=== PATIENT | male | born 1970 | race Caucasian/White ===

== ENCOUNTER 2019-02-04 15:06 | Inpatient (IN) ==
--- OUTSIDE RECORDS SUMMARY | 2019-02-04 15:09 | External Medical Summary | Continuity of Care Document ---
:1970 Author Name Elisa Ortiz, Provider Address Unavailable Unavailable , Care Team Providers Name Role Phone Arianne [email or web address] KAROLINA SHIN Unavailable Unavailable Problems Active medical history not documented Allergies and Adverse Reactions Penicillins (Allergy) Reaction: Rash Medications Albuterol Sulfate HFA AERS Refills: 0 Advair HFA 115-21 MCG/ACT Inhalation Aerosol Refills: 0 Procedures Procedures not documented Immunizations Td Comments:Approx 2009 Influenza Comments:Approx 2010 Family History Unknown Family Member Family history of No Significant Family Status: Active Comments: Family History History Social History - Smoking Status Never smoker Interventions Discussion/SummaryAfter evaluation of this patient clinically and personal review of his CT scan of his maxillofacial bones this patient has a minimally displaced nasal fracture on the left, with multiple facial abrasions.On visual exam I do not notice any significant nasal deformity although I can palpate a very small step-off on the left. I recommended observation of this as a doubt that I could to further improve this via closed reduction. If he has cosmetic concerns down the road he would then need to think about rhinoplasty type procedure. I doubt this will be necessary. I also counseled him on local wound care, applying bacitracin ointment 3-4 times a day, sun protection and cimeosil scar gel. I recommended p.r.n. followup. All of his questions were answered. Plan of Treatment Planned Observations Planned Goals not documented Results No Known Results Results not documented Encounters Appointment; Arianne Fitzgerald M.D. 11-Apr-2012 15:00 Encounter Diagnosis: Problem not documented
[2019-02-04] MEDS ORDERED: HYDROmorphone INJ 1 MG/ML SYRINGE IV STA (16:18)
[2019-02-04] MEDS ORDERED: ONDANSETRON INJ 2 MG/ML 2 ML VIAL IV STA (16:18)
[2019-02-04] MEDS ORDERED: SODIUM CHLORIDE 0.9% 1000ML 2,000 ML IV ONE (16:18)
--- NOTE | 2019-02-04 16:30 | Emergency Department Note ---
History of Present Illness General Chief complaint: Abdominal Pain Stated complaint: ABDOMINAL PAIN Time Seen by Provider: 02/04/19 15:58 History of Present Illness Maximum Pain Intensity: 8 This patient is a 48-year-old male presents to the emergency department via private vehicle for evaluation of a sudden onset of right upper quadrant abdominal pain that started this morning. He describes it as a sharp, stabbing sensation that is worse with movement. He has not taken anything for pain. He also had an episode of vomiting this morning. The patient had a colonoscopy done 3 days ago. He tested positive for C. difficile. He was started on vancomycin, which she has been taking for the last 3 days. He denies any fevers. Patient continues to have diarrhea. He denies any chest pain or shortness of breath. The patient was seen at [facility], and sent here for further evaluation. Home Medications Home Medications Medication Instructions Recorded Confirmed Type albuterol sulfate 2 puff INHALATION UD PRN 02/04/19 02/04/19 History cetirizine [Zyrtec] 10 mg PO DAILY PRN 02/04/19 02/04/19 History fluticasone propion-salmeterol 1 puff INHALATION Q12H 02/04/19 02/04/19 History [Advair Diskus] vancomycin 250 mg PO QID 02/04/19 02/04/19 History Allergies Allergy/AdvReac Type Severity Reaction Status Date / Time Penicillins Allergy Mild UNK Unverified 02/04/19 17:31 azithromycin AdvReac Severe cdiff Verified 02/04/19 21:52 clindamycin AdvReac Severe cdiff Verified 02/04/19 21:52 Past Med/Surg History Medical History Allergic rhinitis (Chronic) C. difficile colitis (Acute) Asthma (Chronic) Surgical History History of esophagogastroduodenoscopy (EGD) (Chronic) non erosive gastropathy History of colonoscopy (Chronic) 02/01 + cdiff aspirate Family History Grandmother Colostomy present unknown cause Grandfather Coronary heart disease Sister Nephrolithiasis Social History Preferred Language: Urdu Communication Ability: Effective marital status: Single Current Living Situation: Alone Feels Safe at Home: Yes Smoking Status: Never smoker Hx Alcohol Use: Yes Alcohol type: beer Alcohol Intake Frequency: Rarely Alcohol Intake Frequency Comment: a couple times a month Hx Substance Use: No Review of Systems A total of 10 systems reviewed and were otherwise negative Physical Exam Vital Signs Vital Signs - 24 hr 02/04/19 15:33 02/04/19 19:10 02/04/19 20:52 Temperature 36.3 C L Temperature Source Oral Sepsis Recent Fever Within 48 Hours No Sepsis Action Taken by Nursing No Action Required Pulse Rate 91 H Pulse Rate [Right Apical] 100 H 100 H Respiratory Rate 18 16 18 Respiratory Effort / Characteristics Non-Labored Non-Labored Spontaneous Respiratory Depth Normal Normal Respiratory Pattern Regular Blood Pressure 114/73 Blood Pressure [Right Arm] 145/87 H 122/72 Blood Pressure Mean 86 Blood Pressure Mean [Right Arm] 106 88 Blood Pressure Position [Right Arm] Sitting Pulse Oximetry 99 99 96 Oxygen Delivery Method Room Air Room Air Room Air 02/04/19 22:11 Temperature Temperature Source Sepsis Recent Fever Within 48 Hours Sepsis Action Taken by Nursing Pulse Rate Pulse Rate [Right Apical] 95 H Respiratory Rate 18 Respiratory Effort / Characteristics Non-Labored Spontaneous Respiratory Depth Normal Respiratory Pattern Regular Blood Pressure Blood Pressure [Right Arm] 137/78 Blood Pressure Mean Blood Pressure Mean [Right Arm] 97 Blood Pressure Position [Right Arm] Pulse Oximetry 97 Oxygen Delivery Method Room Air Constitutional WD/WN, vitals as above + acute distress (Uncomfortable in appearance peer) Eyes EOM intact bilaterally ENMT external ear and nose normal, oropharynx normal (Oral mucosa dry) Neck trachea midline Respiratory normal respiratory effort, lungs clear to auscultation Cardiovascular RRR, no murmur, no edema Gastrointestinal (Abdomen) Bowel sounds present, but hypoactive. No rigidity noted. Abdomen soft. Tenderness to palpation in the right upper quadrant. No guarding or rebound tenderness. Musculoskeletal no cyanosis or clubbing, extremities motor strength 5/5 Skin no rashes, warm and dry Neurologic Alert and oriented x3. No focal motor deficits. Psychiatric Acting appropriately Course Patient was seen and examined Vital signs including blood pressure were reviewed medications list was verified with patient Labs were obtained, and a saline lock was established The patient was ordered Dilaudid 1 mg IV, Zofran 4 mg IV and 2 L normal saline The patient was also ordered Toradol 30 mg IV Imaging was performed and reviewed Upon reevaluation, the patient was feeling better. We discussed his work-up. He voiced understanding. He was in agreement with the disposition. The case was also discussed with my supervising physician who is in agreement with my plan. The [facility] Hospitalist was consulted. They kindly agreed to evaluate the patient for likely inpatient management. Consultations Consultation #1: [facility]ist Administered Medications Ioversol (Optiray 320 100ml) 94 ml IV ONCE PRN PRN Reason: Interaction Checking Stop: 02/08/19 19:09 Last Admin: 02/04/19 19:10 Dose: 94 ml Documented by: [id number] Discontinued Medications Hydromorphone HCl (Dilaudid) 1 mg IV NOW STA Stop: 02/04/19 16:19 Last Admin: 02/04/19 17:26 Dose: 1 mg Documented by: [id number] Sodium Chloride (Nss 1000ml) 2,000 mls @ 999 mls/hr IV .Q2H1M ONE Stop: 02/04/19 18:18 Last Infusion: 02/04/19 19:29 Dose: 0 mls/hr Documented by: [id number] Admin: 02/04/19 17:26 Dose: 999 mls/hr Documented by: [id number] Ketorolac Tromethamine (Toradol) 30 mg IV NOW STA Stop: 02/04/19 20:18 Last Admin: 02/04/19 21:10 Dose: Not Given Documented by: [id number] Ondansetron HCl (Zofran) 4 mg IV NOW STA Stop: 02/04/19 16:19 Last Admin: 02/04/19 17:26 Dose: 4 mg Documented by: [id number] Tamsulosin HCl (Flomax) 0.4 mg PO NOW ONE Stop: 02/04/19 20:18 Last Admin: 02/04/19 21:03 Dose: 0.4 mg Documented by: [id number] Medical Decision Making Medical Records Attestation: I reviewed the patient's medical records. Home Medications Current Medication List: was personally reviewed by me Laboratory Data Attestation: I reviewed the patient's lab results. Result diagrams: 02/04/19 16:58 02/04/19 16:58 Lab Results 02/04/19 02/04/19 02/04/19 Range/Units 16:58 16:58 16:58 WBC 13.26 H (4.8-10.8) K/uL RBC 4.88 (4.7-6.1) M/uL Hgb 14.8 (14.0-18.0) g/dL Hct 41.7 L (42-52) % MCV 85.5 (80-100) fL MCH 30.3 (25-34) pg MCHC 35.5 (32-36) g/dL RDW Std Deviation 39.3 (36.4-46.3) fL RDW Coeff of Arlet 12.7 (11.5-14.5) % Plt Count 265 (130-400) K/uL MPV 10.2 (7.4-10.4) fL Immature Gran % (Auto) 0.2 % Neut % (Auto) 91.5 % Lymph % (Auto) 4.8 % [place] % (Auto) 3.2 % Eos % (Auto) 0.2 % Baso % (Auto) 0.1 % Immature Gran # (Auto) 0.02 (0.00-0.02) K/uL Neut # (Auto) 12.16 H (1.4-6.5) K/uL Lymph # (Auto) 0.63 L (1.2-3.4) K/uL [place] # (Auto) 0.42 (0.11-0.59) K/uL Eos # (Auto) 0.02 (0-0.5) K/uL Baso # (Auto) 0.01 (0-0.2) K/uL PT 11.7 (9.0-12.0) Seconds INR 1.2 H (0.9-1.1) Sodium 138 (136-145) mmol/L Potassium 3.3 L (3.5-5.1) mmol/L Chloride 104 (98-107) mmol/L Carbon Dioxide 26 (21-32) mmol/L Anion Gap 8.0 (3-11) BUN 17 (7-18) mg/dl Creatinine 1.26 (0.6-1.4) mg/dl Est Cr Clr Drug Dosing 87.1 ml/min Est GFR ( Amer) 77.1 Est GFR (Non-Af Amer) 66.5 BUN/Creatinine Ratio 13.2 (10-20) Glucose 158 H (70-99) mg/dl Lactate (0.4-2.0) mmol/L Calcium 9.0 (8.5-10.1) mg/dl Total Bilirubin 1.6 H (0.2-1) mg/dl AST 10 L (15-37) U/L ALT 18 (12-78) U/L Alkaline Phosphatase 77 (45-117) U/L Troponin I < 0.015 (0-0.045) ng/ml Total Protein 7.3 (6.4-8.2) gm/dl Albumin 4.0 (3.4-5.0) gm/dl Globulin 3.3 (2.5-4.0) gm/dl Albumin/Globulin Ratio 1.2 (0.9-2) 02/04/19 Range/Units 16:58 WBC (4.8-10.8) K/uL RBC (4.7-6.1) M/uL Hgb (14.0-18.0) g/dL Hct (42-52) % MCV (80-100) fL MCH (25-34) pg MCHC (32-36) g/dL RDW Std Deviation (36.4-46.3) fL RDW Coeff of Arlet (11.5-14.5) % Plt Count (130-400) K/uL MPV (7.4-10.4) fL Immature Gran % (Auto) % Neut % (Auto) % Lymph % (Auto) % [place] % (Auto) % Eos % (Auto) % Baso % (Auto) % Immature Gran # (Auto) (0.00-0.02) K/uL Neut # (Auto) (1.4-6.5) K/uL Lymph # (Auto) (1.2-3.4) K/uL [place] # (Auto) (0.11-0.59) K/uL Eos # (Auto) (0-0.5) K/uL Baso # (Auto) (0-0.2) K/uL PT (9.0-12.0) Seconds INR (0.9-1.1) Sodium (136-145) mmol/L Potassium (3.5-5.1) mmol/L Chloride (98-107) mmol/L Carbon Dioxide (21-32) mmol/L Anion Gap (3-11) BUN (7-18) mg/dl Creatinine (0.6-1.4) mg/dl Est Cr Clr Drug Dosing ml/min Est GFR ( Amer) Est GFR (Non-Af Amer) BUN/Creatinine Ratio (10-20) Glucose (70-99) mg/dl Lactate 1.7 (0.4-2.0) mmol/L Calcium (8.5-10.1) mg/dl Total Bilirubin (0.2-1) mg/dl AST (15-37) U/L ALT (12-78) U/L Alkaline Phosphatase (45-117) U/L Troponin I (0-0.045) ng/ml Total Protein (6.4-8.2) gm/dl Albumin (3.4-5.0) gm/dl Globulin (2.5-4.0) gm/dl Albumin/Globulin Ratio (0.9-2) Imaging Data Attestation: I personally reviewed and interpreted this imaging study as follows: ECG Data Attestation: I personally reviewed and interpreted this ECG as follows: Indication: abdominal pain Rate (beats per minute): 63 Rhythm: normal sinus Blood Pressure Blood Pressure Findings: Normal blood pressure MDM Narrative Differential diagnosis: Bowel perforation, colitis, choledocholithiasis, cholecystitis, gastroenteritis, pancreatitis, cardiac ischemia, among others In this patient is a 48-year-old male who presents to the emergency department with complaints of right upper abdominal pain that was fairly sudden in onset. Given his history of recent colonoscopy and C. difficile, I was concerned for bowel perforation. His labs reveal mild leukocytosis. His T bilirubin is elevated. Other labs are fairly unremarkable. CT is consistent with a large, proximal ureteral stone. His urine does not appear to be infected. He does not appear septic. He is afebrile. Given the size of the stone and location, I do not think the patient would do well with outpatient management. He was in agreement. The [facility] hospitalist kindly agreed to evaluate the patient for possible inpatient management. Impression & Plan Right ureteral calculus Discharge Plan Visit Data Chief Complaint: Abdominal Pain Stated Complaint: ABDOMINAL PAIN ED Provider: Leo Quintanilla ED Midlevel Provider: Ani Saavedra Discharge Problem: Right ureteral calculus Patient Disposition: Admitted As Inpatient Discharge Instructions Interventions: ED Discharge Assessment Last Done: 02/04/19 22:22 Forms Stand Alone Forms: Call Back Authorization, [facility], Important Visit Information Prescriptions Prescriptions: No Action albuterol sulfate 90 mcg/actuation HFA aerosol inhaler 2 puff inhalation UD PRN (Reason: Shortness Of Breath) RF: 0 cetirizine [Zyrtec] 10 mg Tablet 10 mg PO DAILY PRN (Reason: allergies) RF: 0 vancomycin 250 mg Capsule 250 mg PO QID RF: 0 fluticasone propion-salmeterol [Advair Diskus] 100-50 mcg/dose Blister With Device 1 puff INHALATION Q12H RF: 0 Referrals Referrals: Moe Briggs MD [Primary Care Provider] -
[2019-02-04 17:17] LABS: Basophils # (auto) 0.01 K/uL (0-0.2); Basophils % (auto) 0.1 %; Eosinophils # (auto) 0.02 K/uL (0-0.5); Eosinophils % (auto) 0.2 %; Hematocrit (blood only) 41.7 % (42-52); Hemoglobin 14.8 g/dL (14.0-18.0); Immature Granulocytes # (auto) 0.02 K/uL (0.00-0.02); Immature Granulocytes % (auto) 0.2 %; Lymphocytes # (auto) 0.63 K/uL (1.2-3.4); Lymphocytes % (auto) 4.8 %; Mean Corpuscular Hgb Conc 35.5 g/dL (32-36); Mean Corpuscular Volume 85.5 fL (80-100); Mean Platelet Volume 10.2 fL (7.4-10.4); Monocytes # (auto) 0.42 K/uL (0.11-0.59); Monocytes % (auto) 3.2 %; Neutrophils # (auto) 12.16 K/uL (1.4-6.5); Neutrophils % (auto) 91.5 %; Platelet Count 265 K/uL (130-400); RDW Coefficient of Variation 12.7 % (11.5-14.5); RDW Standard Deviation 39.3 fL (36.4-46.3); Red Blood Count 4.88 M/uL (4.7-6.1); White Blood Count 13.26 K/uL (4.8-10.8)
[2019-02-04 17:32] LABS: Alanine Aminotransferase 18 U/L (12-78); Aspartate Aminotransferase 10 U/L (15-37); BUN Creatinine Ratio 13.2 (10-20); Blood Urea Nitrogen 17 mg/dl (7-18); Carbon Dioxide 26 mmol/L (21-32); Chloride 104 mmol/L (98-107); Creatinine Clr Calc Pharmacy 87.1 ml/min; Est GFR (African American) 77.1; Est GFR (Non-African American) 66.5; Glucose 158 mg/dl (70-99); Potassium 3.3 mmol/L (3.5-5.1); Sodium 138 mmol/L (136-145)
[2019-02-04 17:37] LABS: Albumin Globulin Ratio 1.2 (0.9-2); Alkaline Phosphatase 77 U/L (45-117); Bilirubin,Total 1.6 mg/dl (0.2-1); Globulin 3.3 gm/dl (2.5-4.0); Total Protein 7.3 gm/dl (6.4-8.2); Troponin I < 0.015 ng/ml (0-0.045)
[2019-02-04 17:44] LABS: INR 1.2 (0.9-1.1); Prothrombin Time 11.7 Seconds (9.0-12.0)
[2019-02-04] MEDS ORDERED: IOVERSOL 100ml IV PRN (19:10)
--- NOTE | 2019-02-04 19:52 | CT Scan Report ---
CT OF THE ABDOMEN AND PELVIS WITH CONTRAST CLINICAL HISTORY: Right upper quadrant pain. History of C. difficile. Recent scope. COMPARISON STUDY: None. TECHNIQUE: Following IV administration of 94 mL of Optiray-320, axial images of the abdomen and pelvi s were obtained from the lung bases to the proximal femurs. Images were reviewed in the axial, sagitt al, and coronal planes. IV contrast was administered without complication. Automated exposure contro l was utilized for the study. A dose lowering technique was utilized adhering to the principles of A MAX. Oral contrast was administered. CT DOSE: 724.14 mGy.cm FINDINGS: Lung bases are unremarkable. The liver, spleen, adrenal glands and pancreas are unremarkabl e. Small bilateral renal calculi measure up to 3 mm. Note is made of a 1 cm x 0.6 cm proximal right u reteral calculus. There is mild right hydronephrosis. There is minimal perinephric and periureteral i nfiltration. No additional ureteral calculi are identified. No pneumatosis, free air or portal venous gas is present. The appendix is normal. Mild left colon wall thickening is likely due to underdisten tion. There is no abscess. No suspicious osseous lesions are noted. There are are bilateral L5 pars d efect with minimal antral listhesis of L5 on S1. IMPRESSION: 1. 1 cm x 0.6 cm proximal right ureteral calculus which results in mild right hydronephrosis. 2. Small bilateral intrarenal calculi. 3. Apparent mild left colon wall thickening. This is likely due to underdistention although a nonspec ific colitis could appear similar. No free air. Electronically signed by: Ralph Alvarado M.D. 02/04/2019 7:50 PM
[2019-02-04] MEDS ORDERED: KETOROLAC 30 MG/ML VIAL IV STA (20:17)
[2019-02-04] MEDS ORDERED: TAMSULOSIN HCL 0.4 MG CAP PO ONE (20:17)
--- NOTE | 2019-02-04 21:32 | History & Physical Report ---
Date of Service February 04, 2019 Assessment & Plan (1) Right ureteral calculus: (2) Renal colic on right side: This is a 48-year-old male who has a significant past medical history of moderate persistent asthma, chronic allergic rhinitis, newly diagnosed C. difficile 02/01, history of Cdiff in 2017 who presents to [facility] ED secondary to right-sided back pain that started approximately 12 PM. In ED patient remained hemodynamically stable. Patient does not meet criteria for SIRS/sepsis His WBC count is elevated at 13 K, likely in setting of C. difficile and his heart rate was greater than 90 likely secondary to pain nontoxic appearing, lactate WNL CT scan abdomen pelvis: 1 cm x 0.6 cm proximal right ureteral calculus which results in mild right hydronephrosis. 2. Small bilateral intrarenal calculi. 3. Mild left colon wall thickening admit to med/surg clear liquids tonight, NPO after midnight IVF NS 125 cc/hr consult urology: spoke with Flomax 0.4mg po qam strain all urine UA pending cbc, cmp in a.m. Ketorolac 30 mg every 6 hours IV as needed for moderate pain/morphine 4 mg IV every 4 hours as needed severe pain APAP as needed (3) Hypokalemia: likely secondary to diarrhea replete with 20meq KCL follow bmp (4) C. difficile colitis: hx of cdiff in 2010 s/p azithromycin use Pt treated with clindamycin starting December 29 Dx with Cdiff via colonoscopy 02/01 Started on PO 02/02 to complete 14 day course through 02/16 cdiff precautions avoid antibiotics when able (5) Asthma: controlled with advair, prn albuterol no acute exac (6) DVT prophylaxis: SCDS/TEDS Disposition: discharge to home when able Follow up: PCP Dr. Briggs upon discharge along with approp GI follow up given Cdiff dx Patient was seen and examined in collaboration with Dr. Manrique, please see addendum Starting 02/05/19 patient will be under the care of Dr. Noonan History of Present Illness Chief Complaint: R sided low back pain that started approx 12pm. Primary Care Provider: Moe Briggs MD This is a 48-year-old male who has a significant past medical history of moderate persistent asthma, chronic allergic rhinitis, newly diagnosed C. difficile 02/01, history of Cdiff in 2017 who presents to [facility] ED secondary to right-sided back pain that started approximately 12 PM. Patient states he went home after eating lunch, cauliflower risotto and 2 chicken fingers when approximately 40-45 minutes after he developed intense sharp stabbing pain in his right mid to lower back that radiated to his right lower quadrant. He was unable to get comfortable, nothing alleviated the pain or made pain worse. He did not try anything [id number]. Had associated nausea and emesis x2. He opted to present to [facility] urgent care who referred patient to ED for further work-up. He denies ever having similar symptoms in past. He admits to feeling chilled but denies any fever or sweats. Denies any lightheadedness, dizziness, syncope, chest pain, shortness of breath, palpitations, dysuria, hematuria, increased urgency or frequency with urination. Denies personal history of kidney stones but states his sister had a kidney stone approximately 1 year ago. Of significance on 02/01/2019 patient underwent EGD and colonoscopy and was diagnosed with C. difficile. He was started on oral vancomycin. On December 29 patient was diagnosed with conjunctivitis as well as sinusitis. He was placed on Ciprodex eyedrops as well as oral clindamycin. On January 18 he noticed increased abdominal cramping with associated diarrhea. Abdominal cramping continue become more frequent and worse along with increased frequency of diarrhea. He saw GI on 01/23 who recommended EGD and colonoscopy. At that time he had stool studies for O/P and C. difficile which was negative. He also had a right upper quadrant ultrasound which revealed a gallbladder polyp but otherwise no further gallbladder pathology. Allergies Allergy/AdvReac Type Severity Reaction Status Date / Time Penicillins Allergy Mild UNK Unverified 02/04/19 17:31 azithromycin AdvReac Severe cdiff Verified 02/04/19 21:52 clindamycin AdvReac Severe cdiff Verified 02/04/19 21:52 Home Medications Home Medications Medication Instructions Recorded Confirmed Type albuterol sulfate 2 puff INHALATION UD PRN 02/04/19 02/04/19 History cetirizine [Zyrtec] 10 mg PO DAILY PRN 02/04/19 02/04/19 History fluticasone propion-salmeterol 1 puff INHALATION Q12H 02/04/19 02/04/19 History [Advair Diskus] vancomycin 250 mg PO QID 02/04/19 02/04/19 History Past Med/Surg History Medical History Allergic rhinitis (Chronic) C. difficile colitis (Acute) Asthma (Chronic) Surgical History History of esophagogastroduodenoscopy (EGD) (Chronic) non erosive gastropathy History of colonoscopy (Chronic) 02/01 + cdiff aspirate Family History Grandmother Colostomy present unknown cause Grandfather Coronary heart disease Sister Nephrolithiasis Social History Preferred Language: Korean Communication Ability: Effective Unleavened Dough Mixer Required: No Beliefs That Will Affect Care: None marital status: Single Current Living Situation: Alone Other Information That Helps Us Care for You: No Feels Safe at Home: Yes Safety Concerns: Feels Safe At This Time Smoking Status: Never smoker Hx Alcohol Use: Yes Alcohol type: beer Alcohol Intake Frequency: Rarely Alcohol Intake Frequency Comment: a couple times a month Hx Substance Use: No Review of Systems Review of Systems: As noted per HPI, 10 systems reviewed and negative unless noted above. Physical Exam Physical Exam: Gen: WD/WN, M, NAD, sitting up in bed, pleasant, conversing easily Head: Normocephalic, Atraumatic Eyes: Sclera normal, no conjunctival injection, PERRLA, EOMI ENT: Gross hearing intact, normal pharynx, mucous membranes moist Neck: supple, no adenopathy, No JVD, no bruit, Resp: Clear to auscultation b/l, no wheeze, rales, rhonchi. Normal insp/exp effort, no accessory muscle use CV: Regular rate, regular rhythm, no murmur, rub, gallop, or ectopy Abd: +BS x 4, soft, nontender, nondistended Musculoskeletal: moves extremities active rom x 4, strength intact, good vice president sales strength Extremities: No edema bilaterally Skin: warm, moist, no rash, negative turgor, cap refill < 2sec Neuro: Alert and oriented x 3, speech normal, good mood/affect, cran nerve 2-12 intact grossly : deferred Results & Data Vital Signs (Past 12 Hours) Vital Signs Temp Pulse Pulse Resp BP BP Pulse Ox 02/04/19 20:52 100 H 18 122/72 96 02/04/19 19:10 100 H 16 145/87 H 99 02/04/19 15:33 36.3 C L 91 H 18 114/73 99 Laboratory Results Short CBC 02/04/19 02/04/19 Range/Units 16:58 16:58 WBC 13.26 H (4.8-10.8) K/uL Hgb 14.8 (14.0-18.0) g/dL Hct 41.7 L (42-52) % Plt Count 265 (130-400) K/uL Total Bilirubin 1.6 H (0.2-1) mg/dl BMP 02/04/19 16:58 Sodium 138 Potassium 3.3 L Chloride 104 Carbon Dioxide 26 BUN 17 Creatinine 1.26 Glucose 158 H Calcium 9.0 Cardiac Enzymes 02/04/19 Range/Units 16:58 Troponin I < 0.015 (0-0.045) ng/ml Liver Function 02/04/19 Range/Units 16:58 Total Bilirubin 1.6 H (0.2-1) mg/dl AST 10 L (15-37) U/L ALT 18 (12-78) U/L Alkaline Phosphatase 77 (45-117) U/L Albumin 4.0 (3.4-5.0) gm/dl Diagnostic Findings CT ABD/PELVIS: IMPRESSION: 1. 1 cm x 0.6 cm proximal right ureteral calculus which results in mild right hydronephrosis. 2. Small bilateral intrarenal calculi. 3. Apparent mild left colon wall thickening. This is likely due to underd istention although a nonspecific colitis could appear similar. No free air. Medications Administered Ioversol (Optiray 320 100ml) 94 ml IV ONCE PRN PRN Reason: Interaction Checking Stop: 02/08/19 19:09 Last Admin: 02/04/19 19:10 Dose: 94 ml Documented by: [id number] Discontinued Medications Hydromorphone HCl (Dilaudid) 1 mg IV NOW STA Stop: 02/04/19 16:19 Last Admin: 02/04/19 17:26 Dose: 1 mg Documented by: [id number] Sodium Chloride (Nss 1000ml) 2,000 mls @ 999 mls/hr IV .Q2H1M ONE Stop: 02/04/19 18:18 Last Infusion: 02/04/19 19:29 Dose: 0 mls/hr Documented by: [id number] Admin: 02/04/19 17:26 Dose: 999 mls/hr Documented by: [id number] Ketorolac Tromethamine (Toradol) 30 mg IV NOW STA Stop: 02/04/19 20:18 Last Admin: 02/04/19 21:10 Dose: Not Given Documented by: [id number] Ondansetron HCl (Zofran) 4 mg IV NOW STA Stop: 02/04/19 16:19 Last Admin: 02/04/19 17:26 Dose: 4 mg Documented by: [id number] Tamsulosin HCl (Flomax) 0.4 mg PO NOW ONE Stop: 02/04/19 20:18 Last Admin: 02/04/19 21:03 Dose: 0.4 mg Documented by: [id number] ECG Rate (beats per minute): 63 Rhythm: normal sinus Additional Comments: QTC 462 Code Status & VTE Plan Code Status Full Code VTE Prophylaxis Plan VTE Prophylaxis will be ordered: Yes Supervising Physician Co-Signing Physician Notes HISTORY: Record reviewed. Patient interviewed and examined. Care coordinated with Apple Colon PA-C. Please refer to her documentation for patient's history. Briefly, 48 YO male who presented to ED with right flank pain. No fever, dysuria, hematuria. EXAM: General- no distress Lungs- clear to auscultation; no respiratory distress Cardiovascular- RRR; no murmur; no gallop; no JVD; no pretibial edema Abdomen- + bowel sounds, soft, nontender Back- no CVAT (after receiving analgesics) Extremities- no cyanosis; no calf tenderness Neuro- alert, oriented Skin- warm & dry DATA: WBC 13,260. K 3.3. BUN 17, creat 1.26. Random glucose 158. Other lab studies as noted. CT abdomen and pelvis demonstrated 10 x 6 mm proximal right ureteral calculus with mild hydronephrosis as well as bilateral renal calculi. EKG performed at 1648 reviewed and demonstrated NSR at 60 / minute, inverted T- waves I, flattened T-waves II, aVL, aVF. ASSESSMENT AND PLAN: Right ureteral calculus with hydronephrosis. Afebrile. UA pending. IV fluids, analgesics. Consult Urology. C diff colitis. Continue vancomycin. Hyperglycemia. Check FBS. Please refer to MJ Colon's documentation for discussion of other issues.
[2019-02-04] MEDS ORDERED: RASPBERRY SYRUP 5 ML UDP PO ONE (22:15)
[2019-02-04] MEDS ORDERED: VANCOMYCIN HCL 250 MG/5 ML SOLN PO ONE (22:15)
[2019-02-04] MEDS ORDERED: POTASSIUM CHLORIDE 10 MEQ TABCR PO STA (23:37)
[2019-02-04] MEDS ORDERED: ALUMINUM/MAGNESIUM SUSP 30 ML UDC PO PRN (23:37)
[2019-02-04] MEDS ORDERED: ALBUTEROL HFA 8 GM INHALER INH PRN (23:37)
[2019-02-04] MEDS ORDERED: ONDANSETRON INJ 2 MG/ML 2 ML VIAL IV PRN (23:37)
[2019-02-04] MEDS ORDERED: ACETAMINOPHEN 325 MG TAB PO PRN (23:37)
[2019-02-04] MEDS ORDERED: MoRPHine SULFATE 4 MG/ML 1 ML CARP\\VIAL IV PRN (23:37)
[2019-02-04] MEDS ORDERED: KETOROLAC 30 MG/ML VIAL IV PRN (23:37)
[2019-02-05] MEDS: SODIUM CHLORIDE 0.9% 1000ML 1,000 ML IV SCH ×2 (00:37→09:40)
[2019-02-05 06:45] LABS: Appearance Urine Clear (Clear); Bacteria Urine Automated Negative (Negative); Bilirubin Urine Negative (Negative); Blood Urine 1+ (Negative); Cast Urine Automated 0 /lpf (0-5); Color Urine Yellow; Epithelial Cell Urine Auto 0-5 /lpf (0-5); Glucose Urine UA Negative (Negative); Ketones Urine 2+ (Negative); Leukocyte Esterase Urine Negative (Negative); Nitrite Urine Negative (Negative); Protein Urine Negative (Negative); RBC Urine Automated 0-4 /hpf (0-4); Specific Gravity Urine 1.022 (1.000-1.030); Urobilinogen Urine Negative (Negative); pH Urine 5.5 (4.5-7.5)
[2019-02-05 07:59] LABS: Basophils # (auto) 0.02 K/uL (0-0.2); Basophils % (auto) 0.2 %; Hematocrit (blood only) 39.2 % (42-52); Hemoglobin 13.4 g/dL (14.0-18.0); Immature Granulocytes # (auto) 0.01 K/uL (0.00-0.02); Immature Granulocytes % (auto) 0.1 %; Lymphocytes # (auto) 0.95 K/uL (1.2-3.4); Lymphocytes % (auto) 9.9 %; Mean Corpuscular Hgb Conc 34.2 g/dL (32-36); Mean Corpuscular Volume 86.5 fL (80-100); Mean Platelet Volume 10.1 fL (7.4-10.4); Monocytes # (auto) 0.83 K/uL (0.11-0.59); Monocytes % (auto) 8.6 %; Neutrophils # (auto) 7.73 K/uL (1.4-6.5); Neutrophils % (auto) 80.2 %; Platelet Count 219 K/uL (130-400); RDW Coefficient of Variation 12.9 % (11.5-14.5); RDW Standard Deviation 41.2 fL (36.4-46.3); Red Blood Count 4.53 M/uL (4.7-6.1); White Blood Count 9.64 K/uL (4.8-10.8)
[2019-02-05 08:41] LABS: Albumin Globulin Ratio 1.2 (0.9-2); Albumin Level 3.3 gm/dl (3.4-5.0); Bilirubin,Total 1.3 mg/dl (0.2-1); Calcium 8.6 mg/dl (8.5-10.1); Creatinine Clr Calc Pharmacy 133.8 ml/min; Est GFR (African American) 120.3; Est GFR (Non-African American) 103.8; Globulin 2.8 gm/dl (2.5-4.0); Potassium 3.8 mmol/L (3.5-5.1); Total Protein 6.1 gm/dl (6.4-8.2)
--- NOTE | 2019-02-05 08:46 | XRay Report ---
XR KUB/Abdomen 1 view CLINICAL HISTORY: Ureteral stone COMPARISON STUDY: CT scan dated 02/04/2019 FINDINGS: There is contrast residue within nondilated colon secondary to a prior CT scan. This partia lly obscures the renal shadows. The right renal calculus described on the prior CT scan is not visual ized. There is equivocal visualization of the previously identified proximal right ureteral calculus at the L4 level. IMPRESSION: 1. Technically limited study secondary to contrast within nondilated colon 2. Equivocal 5 mm proximal right ureteral calculus at the L4 level Electronically signed by: Sharif Lopez M.D. 02/05/2019 8:45 AM
[2019-02-05] MEDS ORDERED: FLUTICASONE/SALMETEROL 100/50 (ADVAIR) 14 PUFF/1 INHALER INH SCH (09:00)
[2019-02-05] MEDS ORDERED: VANCOMYCIN 250 MG PO SCH (09:00)
[2019-02-05] MEDS ORDERED: TAMSULOSIN HCL 0.4 MG CAP PO SCH (09:00)
[2019-02-05] MEDS: RASPBERRY SYRUP 5 ML UDP PO SCH ×2 (09:40→13:06)
[2019-02-05] MEDS: VANCOMYCIN HCL 250 MG/5 ML SOLN PO SCH ×2 (09:41→13:06)
--- NOTE | 2019-02-05 09:53 | Urology Consultation ---
Date of Consultation February 05, 2019 Assessment & Plan (1) Right ureteral calculus: A/P 48-year-old male with a right ureteral calculus and improved colic. Findings reviewed with patient. He reports he is perfectly comfortable currently but anxious over the return of possible colic. A significant portion of his presentation was anxiety due to the unknown etiology of his discomfort. He did not take any pain medication at home prior to presentation to the ER. Seen the size of his stone I suspect the spontaneous passage is relatively unlikely. He is offered acute intervention today with possible ureteroscopy should his ureter allow for access to the stone and ureteral stent placement or we can attempt to arrange for outpatient shockwave lithotripsy of his stone later this week. After discussion of risks and benefits of various forms of intervention he would prefer outpatient lithotripsy should his pain remain controllable in the outpatient context. Will provide a p.o. diet for today and the patient may be discharged home this evening if his pain remains controlled. Will discharge home with narcotic pain medication and our service will arrange for outpatient lithotripsy this Monday. Should the patient have uncontrollable pain requiring presentation to the emergency room again and I suspect acute endoscopic decompression will be necessary. Worrisome signs and symptoms reviewed. Patient vocalizes good understanding of the treatment plan. Appointment set to arrange shockwave lithotripsy with MARCIANO at our office at [address] [place] [address] ([phone]) at 10:20 AM tomorrow Monday. Thank you for allowing us to participate in this patient's acute care. Please contact our service with any questions or concerns. History of Present Illness Reason for Consultation: Right ureteral stone with colic. Attending Physician: Yemi Noonan MD History of Present Illness 48-year-old male admitted to the hospital for his first episode of renal colic with a 1 cm at x0.6 cm stone in the right mid ureter. He denies prior stone episodes or previous urologic evaluation. He noticed pain unexpectedly yesterday and was unsure the etiology. He presented to the emergency room where CT scan imaging demonstrated a proximal right ureteral calculus. He reports t hat he was provided with parenteral pain medication in the emergency room and has not had any significant pain since 6 PM last night. He is n.p.o. for possible intervention today. Urology consultation is requested to assist with his inpatient care. Imaging studies are reviewed with the patient as well as his KUB demonstrating a radiopaque mid ureteral stone on the right-hand side. Allergies Allergy/AdvReac Type Severity Reaction Status Date / Time Penicillins Allergy Mild Redness of Unverified 02/05/19 07:48 Skin azithromycin AdvReac Severe cdiff Verified 02/04/19 21:52 clindamycin AdvReac Severe cdiff Verified 02/04/19 21:52 Home Medications Home Medications Medication Instructions Recorded Confirmed Type albuterol sulfate 2 puff INHALATION UD PRN 02/04/19 02/04/19 History cetirizine [Zyrtec] 10 mg PO DAILY PRN 02/04/19 02/04/19 History fluticasone propion-salmeterol 1 puff INHALATION Q12H 02/04/19 02/04/19 History [Advair Diskus] vancomycin 250 mg PO QID 02/04/19 02/04/19 History Patient History Medical History Allergic rhinitis (Chronic) C. difficile colitis (Acute) Asthma (Chronic) Nephrolithiasis Right ureteral calculus Surgical History History of esophagogastroduodenoscopy (EGD) (Chronic) non erosive gastropathy History of colonoscopy (Chronic) 02/01 + cdiff aspirate Family History Grandmother Colostomy present unknown cause Grandfather Coronary heart disease Sister Nephrolithiasis Social History Preferred Language: Belarusian Communication Ability: Effective Door Builder Required: No Beliefs That Will Affect Care: None marital status: Single Current Living Situation: Alone Other Information That Helps Us Care for You: No Feels Safe at Home: Yes Safety Concerns: Feels Safe At This Time Smoking Status: Never smoker Hx Alcohol Use: Yes Alcohol type: beer Alcohol Intake Frequency: Rarely Alcohol Intake Frequency Comment: a couple times a month Hx Substance Use: No Review of Systems Constitutional: no fever and no chills Eyes: no diplopia Ear, Nose, Mouth, Throat: no ear trauma Respiratory: no hemoptysis Cardiovascular: no chest pain Gastrointestinal: + abdominal pain and + nausea; no coffee ground emesis Musculoskeletal: + back pain Integumentary: no acne and no boil Neurologic: no paralysis and no numbness Endocrine: no polyphagia Hematologic / Lymphatic: no easy bleeding and no lymphadenopathy Allergy / Immunological: no tongue swelling Physical Exam Constitutional: WD/WN, vitals as above Eyes: eyes not dysmorphic ENMT: Ears: no external ear abnormality Neck: trachea midline; no anterior neck swelling Respiratory: no respiratory distress and does not use accessory muscles Cardiovascular: Vessels: radial pulses present Gastrointestinal (Abdomen): Inspection/Auscultation: abdomen not distended Percussion/Palpation: abdomen soft Musculoskeletal: Head/Neck/Chest: normocephalic Skin: normal turgor Neurologic: awake; not obtunded Psychiatric: Orientation: oriented x 3 Lymphatic: no lymphadenopathy Results & Data Vital Signs (Past 12 Hours) Vital Signs Temp Pulse Pulse Resp BP Pulse Ox 02/05/19 08:06 37.0 C 93 H 16 117/75 97 02/05/19 00:10 37.1 C 100 H 14 124/82 96 02/04/19 23:30 37.1 C 100 H 16 124/82 96 02/04/19 22:11 95 H 18 137/78 97 Laboratory Results Laboratory Results - last 48 hr 02/04/19 02/04/19 02/04/19 16:58 16:58 16:58 WBC 13.26 H RBC 4.88 Hgb 14.8 Hct 41.7 L MCV 85.5 MCH 30.3 MCHC 35.5 RDW Std Deviation 39.3 RDW Coeff of Arlet 12.7 Plt Count 265 MPV 10.2 Immature Gran % (Auto) 0.2 Neut % (Auto) 91.5 Lymph % (Auto) 4.8 Cassia % (Auto) 3.2 Eos % (Auto) 0.2 Baso % (Auto) 0.1 Immature Gran # (Auto) 0.02 Neut # (Auto) 12.16 H Lymph # (Auto) 0.63 L Cassia # (Auto) 0.42 Eos # (Auto) 0.02 Baso # (Auto) 0.01 PT 11.7 INR 1.2 H Sodium 138 Potassium 3.3 L Chloride 104 Carbon Dioxide 26 Anion Gap 8.0 BUN 17 Creatinine 1.26 Est Cr Clr Drug Dosing 87.1 Est GFR ( Amer) 77.1 Est GFR (Non-Af Amer) 66.5 BUN/Creatinine Ratio 13.2 Glucose 158 H Lactate Calcium 9.0 Total Bilirubin 1.6 H AST 10 L ALT 18 Alkaline Phosphatase 77 Troponin I < 0.015 Total Protein 7.3 Albumin 4.0 Globulin 3.3 Albumin/Globulin Ratio 1.2 Urine Color Urine Appearance Urine pH Ur Specific [place] Urine Protein Urine Glucose (UA) Urine Ketones Urine Blood Urine Nitrite Urine Bilirubin Urine Urobilinogen Ur Leukocyte Esterase Urine WBC (Auto) Urine RBC (Auto) U Hyaline Cast (Auto) U Epithel Cells (Auto) Urine Bacteria (Auto) 02/04/19 02/05/19 02/05/19 16:58 05:30 07:30 WBC 9.64 RBC 4.53 L Hgb 13.4 L Hct 39.2 L MCV 86.5 MCH 29.6 MCHC 34.2 RDW Std Deviation 41.2 RDW Coeff of Arlet 12.9 Plt Count 219 MPV 10.1 Immature Gran % (Auto) 0.1 Neut % (Auto) 80.2 Lymph % (Auto) 9.9 Cassia % (Auto) 8.6 Eos % (Auto) 1.0 Baso % (Auto) 0.2 Immature Gran # (Auto) 0.01 Neut # (Auto) 7.73 H Lymph # (Auto) 0.95 L Cassia # (Auto) 0.83 H Eos # (Auto) 0.10 Baso # (Auto) 0.02 PT INR Sodium Potassium Chloride Carbon Dioxide Anion Gap BUN Creatinine Est Cr Clr Drug Dosing Est GFR ( Amer) Est GFR (Non-Af Amer) BUN/Creatinine Ratio Glucose Lactate 1.7 Calcium Total Bilirubin AST ALT Alkaline Phosphatase Troponin I Total Protein Albumin Globulin Albumin/Globulin Ratio Urine Color Yellow Urine Appearance Clear Urine pH 5.5 Ur Specific [place] 1.022 Urine Protein Negative Urine Glucose (UA) Negative Urine Ketones 2+ H Urine Blood 1+ H Urine Nitrite Negative Urine Bilirubin Negative Urine Urobilinogen Negative Ur Leukocyte Esterase Negative Urine WBC (Auto) 1-5 Urine RBC (Auto) 0-4 U Hyaline Cast (Auto) 0 U Epithel Cells (Auto) 0-5 Urine Bacteria (Auto) Negative 02/05/19 07:30 WBC RBC Hgb Hct MCV MCH MCHC RDW Std Deviation RDW Coeff of Arlet Plt Count MPV Immature Gran % (Auto) Neut % (Auto) Lymph % (Auto) Cassia % (Auto) Eos % (Auto) Baso % (Auto) Immature Gran # (Auto) Neut # (Auto) Lymph # (Auto) Cassia # (Auto) Eos # (Auto) Baso # (Auto) PT INR Sodium 141 Potassium 3.8 D Chloride 111 H Carbon Dioxide 25 Anion Gap 5.0 BUN 8 D Creatinine 0.82 D Est Cr Clr Drug Dosing 133.8 Est GFR ( Amer) 120.3 Est GFR (Non-Af Amer) 103.8 BUN/Creatinine Ratio 10.0 Glucose 101 H Lactate Calcium 8.6 Total Bilirubin 1.3 H AST 7 L ALT 15 Alkaline Phosphatase 71 Troponin I Total Protein 6.1 L Albumin 3.3 L Globulin 2.8 Albumin/Globulin Ratio 1.2 Urine Color Urine Appearance Urine pH Ur Specific [place] Urine Protein Urine Glucose (UA) Urine Ketones Urine Blood Urine Nitrite Urine Bilirubin Urine Urobilinogen Ur Leukocyte Esterase Urine WBC (Auto) Urine RBC (Auto) U Hyaline Cast (Auto) U Epithel Cells (Auto) Urine Bacteria (Auto)
--- NOTE | 2019-02-05 11:28 | XRay Report ---
TWO VIEW CHEST CLINICAL HISTORY: Preoperative examination. FINDINGS: PA and lateral chest radiographs are obtained. No prior studies are available for compariso n at the time of dictation. The cardiomediastinal silhouette is unremarkable. There is mild elevati on of the right hemidiaphragm. The lungs and pleural spaces are clear. There is no pneumothorax. The bony thorax appears intact. IMPRESSION: No active disease in the chest. Electronically signed by: Matheus Dumont M.D. 02/05/2019 11:26 AM
--- NOTE | 2019-02-05 12:22 | Hospitalist Progress Note ---
Date of Service February 05, 2019 Assessment & Plan (1) Right ureteral calculus: (2) Renal colic on right side: Patient is a 48 yr male with H/O moderate persistent asthma, chronic allergic rhinitis, newly diagnosed C. difficile 02/01, history of Cdiff in 2016 who presents to [facility] ED secondary to right-sided back pain and was found to have right ureteral calculus. Right ureteral calculus/ Renal Colic Mild right hydronephrosis CT ABD:1 cm x 0.6 cm proximal right ureteral calculus which results in mild right hydronephrosis. Small bilateral intrarenal calculi. Apparent mild left colon wall thickening. This is likely due to underdistention although a nonspecific colitis could appear similar. No free air. Continue IV fluids, pain control, Flomax Appreciate urology input Plan for shockwave lithotripsy tomorrow as outpatient Pain is controlled, denies dysuria, hematuria. Strain Urine (3) Hypokalemia: likely secondary to diarrhea Resolved Replace electrolytes as needed (4) C. difficile colitis: H/O C diff in 2010 s/p azithromycin use Pt treated with clindamycin starting December 29 Dx with Cdiff via colonoscopy 02/01 Started on PO 02/02 to complete 14 day course through 02/16 cdiff precautions Continue vancomycin Encourage to drink oral fluids (5) Asthma: controlled with advair, prn albuterol No signs of exacerbation (6) DVT prophylaxis: SCDS/TEDS Disposition: Plan to discharge home today Subjective Patient is seen and examined at bedside Right flank pain improved Denies any hematuria, dysuria, chest pain, SOB, dizziness Reports Ongoing diarrhea due to C Diff, has some abdominal discomfort with diarrhea No other complaints Plan for shockwave lithotripsy tomorrow as outpatient Review of Systems Review of Systems: All systems reviewed & are unremarkable except as noted in HPI & below Physical Exam Physical Exam: Physical Exam: Vitals signs as noted above General Appearance:Moderately built and nourished, no apparent distress Head: normocephalic, Atraumatic Eyes: normal inspection, EOMI Neck: supple, Trachea midline Respiratory/Chest: Normal breath sounds, CTA Cardiovascular: S1, S2, No murmur Abdomen/GI:Soft, Non tender, Bowel sounds present Extremities/Musculoskelatal:normal inspection, no edema Neurologic/Psych:AAOX3, grossly no focal neurological deficits Skin: normal color, warm Results & Data Vital Signs (Past 12 Hours) Vital Signs Temp Pulse Resp BP Pulse Ox 02/05/19 08:06 37.0 C 93 H 16 117/75 97 Laboratory Results Short CBC 02/04/19 02/05/19 Range/Units 16:58 07:30 WBC 13.26 H 9.64 (4.8-10.8) K/uL Hgb 14.8 13.4 L (14.0-18.0) g/dL Hct 41.7 L 39.2 L (42-52) % Plt Count 265 219 (130-400) K/uL BMP 02/04/19 02/05/19 16:58 07:30 Sodium 138 141 Potassium 3.3 L 3.8 D Chloride 104 111 H Carbon Dioxide 26 25 BUN 17 8 D Creatinine 1.26 0.82 D Glucose 158 H 101 H Calcium 9.0 8.6 Cardiac Enzymes 02/04/19 Range/Units 16:58 Troponin I < 0.015 (0-0.045) ng/ml Liver Function 02/04/19 02/05/19 Range/Units 16:58 07:30 Total Bilirubin 1.6 H 1.3 H (0.2-1) mg/dl AST 10 L 7 L (15-37) U/L ALT 18 15 (12-78) U/L Alkaline Phosphatase 77 71 (45-117) U/L Albumin 4.0 3.3 L (3.4-5.0) gm/dl Urine 02/05/19 Range/Units 05:30 Urine Color Yellow Urine Appearance Clear (Clear) Urine pH 5.5 (4.5-7.5) Ur Specific [place] 1.022 (1.000-1.030) Urine Protein Negative (Negative) Urine Glucose (UA) Negative (Negative)
--- NOTE | 2019-02-05 12:42 | Discharge Summary ---
Date of Service February 05, 2019 Admission HPI Per Admitting Provider This is a 48-year-old male who has a significant past medical history of moderate persistent asthma, chronic allergic rhinitis, newly diagnosed C. difficile 02/01, history of Cdiff in 2017 who presents to [facility] ED secondary to right-sided back pain that started approximately 12 PM. Patient states he went home after eating lunch, cauliflower risotto and 2 chicken fingers when approximately 40-45 minutes after he developed intense sharp stabbing pain in his right mid to lower back that radiated to his right lower quadrant. He was unable to get comfortable, nothing alleviated the pain or made pain worse. He did not try anything [id number]. Had associated nausea and emesis x2. He opted to present to [facility] urgent care who referred patient to ED for further work-up. He denies ever having similar symptoms in past. He admits to feeling chilled but denies any fever or sweats. Denies any lightheadedness, dizziness, syncope, chest pain, shortness of breath, palpitations, dysuria, hematuria, increased urgency or frequency with urination. Denies personal history of kidney stones but states his sister had a kidney stone approximately 1 year ago. Of significance on 02/01/2019 patient underwent EGD and colonoscopy and was diagnosed with C. difficile. He was started on oral vancomycin. On December 29 patient was diagnosed with conjunctivitis as well as sinusitis. He was placed on Ciprodex eyedrops as well as oral clindamycin. On January 18 he noticed increased abdominal cramping with associated diarrhea. Abdominal cramping continue become more frequent and worse along with increased frequency of diarrhea. He saw GI on 01/23 who recommended EGD and colonoscopy. At that time he had stool studies for O/P and C. difficile which was negative. He also had a right upper quadrant ultrasound which revealed a gallbladder polyp but otherwise no further gallbladder pathology. Admission Exam Per Admitting Provider Gen: WD/WN, M, NAD, sitting up in bed, pleasant, conversing easily Head: Normocephalic, Atraumatic Eyes: Sclera normal, no conjunctival injection, PERRLA, EOMI ENT: Gross hearing intact, normal pharynx, mucous membranes moist Neck: supple, no adenopathy, No JVD, no bruit, Resp: Clear to auscultation b/l, no wheeze, rales, rhonchi. 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 Extremities: No edema bilaterally Skin: warm, moist, no rash, negative turgor, cap refill < 2sec Neuro: Alert and oriented x 3, speech normal, good mood/affect, cran nerve 2-12 intact grossly : deferred Principal Diagnosis Discharge Information Discharge Diagnosis Renal Colic/Right Ureteral Calculus C difficile Diarrhea Discharge Goals Decrease discomfort,Improve disease control, Improve function Discharge Activity Limitations Resume your previous acti Discharge Data Allergies Allergy/AdvReac Type Severity Reaction Status Date / Time Penicillins Allergy Mild Redness of Unverified 02/05/19 07:48 Skin azithromycin AdvReac Severe cdiff Verified 02/04/19 21:52 clindamycin AdvReac Severe cdiff Verified 02/04/19 21:52 Consultations 02/04/19 20:33 ED Decision to Admit Stat 02/04/19 22:17 Consult Urology Routine Procedures Performed CT ABD: 1. 1 cm x 0.6 cm proximal right ureteral calculus which results in mild right hydronephrosis. 2. Small bilateral intrarenal calculi. 3. Apparent mild left colon wall thickening. This is likely due to underdistention although a nonspecific colitis could appear similar. No free air. CXR: No active disease in the chest. Ordered Studies 02/04/19 16:18 CT abd pelvis oral and IV con Stat Hospital Course (1) Right ureteral calculus: (2) Renal colic on right side: Patient is a 48 yr male with H/O moderate persistent asthma, chronic allergic rhinitis, newly diagnosed C. difficile 02/01, history of Cdiff in 2017 who presents to [facility] ED secondary to right-sided back pain and was found to have right ureteral calculus. Right ureteral calculus/ Renal Colic Mild right hydronephrosis CT ABD:1 cm x 0.6 cm proximal right ureteral calculus which results in mild right hydronephrosis. Small bilateral intrarenal calculi. Apparent mild left colon wall thickening. This is likely due to underdistention although a nonspecific colitis could appear similar. No free air. Continue IV fluids, pain control, Flomax Appreciate urology input Plan for shockwave lithotripsy tomorrow as outpatient Pain is controlled, denies dysuria, hematuria. Strain Urine (3) Hypokalemia: likely secondary to diarrhea Resolved Replace electrolytes as needed (4) C. difficile colitis: H/O C diff in 2010 s/p azithromycin use Pt treated with clindamycin starting December 29 Dx with Cdiff via colonoscopy 02/01 Started on PO 02/02 to complete 14 day course through 02/16 cdiff precautions Continue vancomycin Encourage to drink oral fluids (5) Asthma: controlled with advair, prn albuterol No signs of exacerbation (6) DVT prophylaxis: SCDS/TEDS Disposition: Plan to discharge home today Total Time Total Time Spent Total Time Spent (In Minutes): 38 minutes Total Time Includes: Examination of the Patient, Discharge Planning, Medication Reconciliation, Communication With Other Providers and Other Discharge Plan Discharge Items Patient Disposition: Home - Self-Care Reason For Visit: NEPHROLITHIASIS Discharge Diagnosis: Renal Colic/Right Ureteral Calculus C difficile Diarrhea Discharge Goals: Decrease discomfort, Improve disease control and Improve function Activity: Resume your previous activity Exercise/Sports: Gradually increase as tolerated Non-emergency contact: Primary Care Provider and Urologist Call non-emergency contact if: you have any medication questions, your symptoms worsen, your pain is not controlled, your pain is worsening, your pain is unusual for you, your pain is concerning for you and you have a fever Follow-up/Referrals: Moe Briggs MD [Primary Care Provider] - Diet: Heart Healthy Addtl Provider Instructions: Follow-up with your primary care physician Dr. Briggs on February 11, 2019 at 10:45 AM Follow-up with your urologist Dr. Nuno for outpatient shockwave lithotripsy as scheduled Seek immediate medical attention if your symptoms reoccur or worsen Complete the vancomycin antibiotic course as prescribed Appointment set to arrange shockwave lithotripsy with [facility] at our office at [address] [place] [address] ([phone]) at 10:20 AM tomorrow Monday. Prescriptions: New tamsulosin 0.4 mg Capsule 0.4 mg PO QAM 30 Days Qty: 30 RF: 0 ketorolac 10 mg tablet 10 mg PO Q8H PRN (Reason: pain) 3 Days Qty: 10 RF: 0 Continued albuterol sulfate 90 mcg/actuation HFA aerosol inhaler 2 puff inhalation UD PRN (Reason: Shortness Of Breath) RF: 0 cetirizine [Zyrtec] 10 mg Tablet 10 mg PO DAILY PRN (Reason: allergies) RF: 0 vancomycin 250 mg Capsule 250 mg PO QID RF: 0 fluticasone propion-salmeterol [Advair Diskus] 100-50 mcg/dose Blister With Device 1 puff INHALATION Q12H RF: 0 Stand-Alone Forms: Call Back Authorization, [facility]/Other Patient Handouts: Kidney Stones Nephrolithotomy Discharge Orders: Discharge Order (Routine); Ordered 02/05/19 Ordered By: Yemi Noonan Admission Data Admit Date/Time: 02/04/19 21:54 Attending Provider: Yemi Noonan Admit Provider: Dandre Manrique Primary Care Provider: Moe Briggs Other Providers: Ranjeet Linda II ; Price Escalera Service: Surgical Services Other Interventions: Discharge Summary Assessment (RN) Last Done: 02/05/19 13:27 Pending Studies at Discharge: Yes Studies:: Blood Culture DC Date/Time DO NOT enter until pt leaves facility: 02/05/19 13:56
== END 2019-02-05 13:56 | disposition home or self-care (01) | DRG 694 ==
LOC: ED 15:06 → 3W 21:54